=== PATIENT | male | born 1970 | race African-American/Black ===

== ENCOUNTER 2018-02-27 07:38 | Emergency (ER) | payer SELFPAY ==
[2018-02-27 07:44] VITALS: BP 107/81
--- NOTE | 2018-02-27 07:50 | EDPHY ---
H & P Stated Complaint: LL tooth pain Time Seen by Provider: 02/27/18 07:47 HPI/ROS: Chief Complaint: Mandibular pain HPI: The patient presents to the ED with complaints of mandibular pain. The patient recently has had a temporary bridge which was placed in [place]. The patient had been on antibiotics which she stop taking several days ago. The patient presents the ED as he has noted some mild pain and is concerned that his temporary bridge has once again fractured. The patient denies any fever. He denies any upper respiratory symptoms. He denies additional acute complaints. REVIEW OF SYSTEMS: Neuro: no headache, numbness, weakness Musculoskeletal: as above Skin: no abrasion or lacerations Source: Patient - Personal History Current Tetanus/Diphtheria Vaccine: Unsure Current Tetanus Diphtheria and Acellular Pertussis (TDAP): Unsure - Medical/Surgical History Hx Asthma: No Hx Chronic Respiratory Disease: No Hx Diabetes: No Hx Cardiac Disease: No Hx Renal Disease: No Hx Cirrhosis: No Hx Alcoholism: No Hx HIV/AIDS: No Hx Splenectomy or Spleen Trauma: No Other PMH: denies - Social History Smoking Status: Never smoked - Physical Exam Exam: General Appearance: Alert, no distress Eyes: Pupils equal and round no pallor or injection ENT, Mouth: Mild gingival inflammation in area of temporary bridge noted to lower left mandible. Slight soft tissue swelling, no fluctuance or induration. Respiratory: There are no retractions, lungs are clear to auscultation Cardiovascular: Regular rate and rhythm Neurological: Grossly normal motor exam Skin: Warm and dry, no rashes Musculoskeletal: No meningeal symptoms Extremities: symmetrical, full range of motion Constitutional: Initial Vital Signs Temperature (C) 36.6 C 02/27/18 07:42 Heart Rate 76 02/27/18 07:42 Respiratory Rate 16 02/27/18 07:42 Blood Pressure 107/81 H 02/27/18 07:42 O2 Sat (%) 92 02/27/18 07:42 O2 Delivery Mode Room Air Allergies/Adverse Reactions: No Known Allergies Allergy (Unverified 02/27/18 07:42) Home Medications: Medication Instructions Recorded Ibuprofen 02/27/18 Medical Decision Making ED Course/Re-evaluation: I have referred the patient to our on-call oral surgeon for a evaluation of his dental work. Departure - Departure Disposition: Home, Routine, Self-Care Clinical Impression: Dental implant pain Condition: Good Instructions: Toothache (ED) Additional Instructions: 1. Take Ibuprofen or Motrin 600 mg by mouth three times a day. 2. Please contact the oral surgeon you have been referred to schedule a office visit today. Please let them know that you were seen in the emergency department and referred to their office by the ED doctor. Referrals: Mary Pandey, ANNEMARIE [Doctor of Dental Surgery] - As per Instructions
== END 2018-02-27 08:00 | disposition home or self-care (01) ==
DX: R68.84 Jaw pain (principal); K08.89 Other specified disorders of teeth and supporting structures